=== PATIENT | male | born 1975 | race Caucasian/White ===

== ENCOUNTER 2016-08-04 18:31 | Emergency (ER) | payer MEDICARE ==
[~2016-08-04 18:31] MED LIST: Acetaminophen PO; BENZ1TAB7 PO; CRB200T PO; IBUP-1827 PO; OXYC5TAB72 PO; RISP1TAB3 PO
== END 2016-08-04 18:40 | disposition left against medical advice (07) ==
LOC: SED 18:31
DX: Z53.21 Procedure and treatment not carried out due to patient leaving prior to being seen by health care provider (principal)

== ENCOUNTER 2016-08-20 11:23 | Inpatient (IN) | payer MEDICAID, MEDICARE ==
[~2016-08-20] VITALS: Ht 182.9 cm; Wt 82.2 kg
[2016-08-20 11:27] VITALS: BP 110/76; PULSE 73; RESP 16; O2SAT 99
--- NOTE | 2016-08-20 13:12 | ED.REPORT ---
HPI-General Illness Date of Service Aug 20, 2016 ED Provider: Candice Ceron MD 41 year old male who is an everyday cigarette and marijuana smoker with a history of IV heroin and methamphetamine abuse presents to the ER accompanied by PACT team complaining of a week of rash and bruising to the left abdomen. Associated symptom of general malaise. PACT team brought the patient in due to evidence of liver failure and Hepatitis C on his recent blood tests. Medications include carbamazepine, and Risperdal. He was seen here in the ER for his rash and STD testing. Last IV drug use was about a month ago. Nursing Notes Stated Complaint: POSSIBLE LIVER FAILURE Chief Complaint: General Complaint Nursing Notes Reviewed: Yes Allergies: Coded Allergies: No Known Allergies (Verified Allergy, Unknown, 09/20/15) Scheduled Benztropine Mesylate (Benztropine Mesylate) 1 Mg Tablet 1 MG PO DAILY Carbamazepine (Carbamazepine) 200 Mg Tablet 400 MG PO DAILY Risperidone (Risperidone) 1 Mg Tablet 1 MG PO DAILY General Time Seen by MD: 13:12 Chief Complaint Not feeling well, Rash Hx Obtained From: Patient Arrived By: Walk-in Sudden in Onset?: No Onset Occurred: 1 week ago Symptom Duration: Since onset Pertinent Negative: Pt denies other symptoms Recent Healthcare: Recent doctor visit Similar Sx Previous: No Past Medical History Past Medical History Bipolar disorder, intermittent explosive disorder, cannabis dependence, cocaine, meth, heroine abuse antisocial personality traits Past Surgical History denies Smoking History Current Every Day Smoker Social History Alcohol Use: Denies alcohol use Drug Use: Meth, THC, Other Other Social History: Local resident, Homeless Ambulatory Status Independent Review of Systems Full Review of Systems Constitutional: Reports: Malaise Respiratory: Denies: Shortness of breath Cardiovascular: Denies: Chest pain GI: Denies: Abdominal pain, Diarrhea, Nausea, Vomiting Skin: Reports Rash Complete sys rev & neg: except as marked. Physical Exam Vital Signs Vital Signs Date Time Temp Pulse Resp B/P Pulse Ox O2 Delivery O2 Flow Rate FiO2 08/20/16 11:27 37.2 73 16 110/76 99 Room Air Initial VS: Reviewed Head / Eyes: Atraumatic, Normocephalic Neck: Supple, Non-tender, Full range of motion Extremities: Vascular intact, Neuro intact, No swelling, No tenderness Neurologic: Alert, Oriented, Nonfocal General/Constitutional: Awake, Alert, No acute distress, Well developed, Well nourished Respiratory / Chest: Breath sounds NL, No respiratory distress, No rales, No rhonchi, No wheezing Cardiovascular: Heart rate NL, Regular rhythm, Heart sounds NL, No murmurs, Cap refill not delayed, Peripheral circulation NL Skin: Warm, Dry, Intact Color / Condition: Positive: Rash present Rash / Lesion Notes: Herpes Zoster in Left side T10 distribution. About 1 week old, resolving. Interpretation & Diagnostics Lab Results Interpretation Result Diagram: 08/20/16 1312 08/20/16 1312 Test 08/20/16 13:12 White Blood Count 6.0th/mm3 (3.8-10.1) Red Blood Count 5.27mil/mm3 (4.40-5.80) Hemoglobin 15.1g/dL (13.8-17.2) Hematocrit 45.1% (41.0-50.0) Mean Corpuscular Volume 85.6fL (81-100) Mean Corpuscular Hemoglobin 28.7pg (27.0-35.0) Mean Corpuscular Hemoglobin Concent 33.5% (32.0-37.0) Red Cell Distribution Width 14.5% (12.3-15.4) Platelet Count 210bil/L (150-400) Neutrophils (%) (Auto) 58.1% (40-74) Lymphocytes (%) (Auto) 24.8% (14-46) Monocytes (%) (Auto) 15.0% (4-12) Eosinophils (%) (Auto) 1.3% (0-5) Basophils (%) (Auto) 0.5% (0-3) Sodium Level 137mEq/L (134-144) Potassium Level 4.4mEq/L (3.5-5.2) Chloride Level 101mEq/L (97-108) Carbon Dioxide Level 21mmol/L (18-29) Blood Urea Nitrogen 20mg/dL (6-20) Creatinine 0.82mg/dL (0.76-1.27) Estimat Glomerular Filtration Rate 111mL/min (>59) Glucose Level 97mg/dL (60-99) Calcium Level 9.4mg/dL (8.5-10.1) Total Bilirubin 2.2mg/dL (0.0-1.2) Aspartate Amino Transf (AST/SGOT) 2182U/L (0-50) Alanine Aminotransferase (ALT/SGPT) 3012U/L (0-44) Alkaline Phosphatase 337U/L (25-150) Total Protein 6.3g/dL (6.4-8.4) Albumin 3.9g/dL (3.4-5.0) Lipase 46U/L (13-60) Lab Results Interpretation: Hepatitis C positive, HIV negative 08/10/2016 Significantly elevated transaminases Re-Eval/Medical Decision Med Decision/Clinical Course Acute hepatitis of uncertain etiology. Abdomen has had work done it has been W through lab work and is not available in that general or in [facility]. We will need to contact his PAC T team to get access to those labs. Feeling mild malaise at this point more consistent with a 5 of his significant zoster outbreak then a fulminant hepatitis. Labs from August 10 due indicate hepatitis C which is a new diagnosis for him. HIV is negative in consultation with GI recommendation was for admission at least overnight to make sure transaminases are trending down. As he is eating and drinking will not admit IV at this point. He does have a history of IV drug use and I think having an IV site is a risk that is not worth taking at this point. He is quite stable at this time sober. And actively involved in his care. Willing to follow-up recommendations. We will expand her workup had ultrasound imaging of his liver obtain GI consult and plan on following blood/transaminase work trends over the next at least 24 hours. Source of Hx: Old records Time of Eval: 14:57 Re-Evaluation/Progress Note: Discussed lab results and completed physical examination. Re-Evaluation/Progress Note: Discussed need for admission. Patient is amenable to the plan. All other questions addressed. Consultation #1: Referral / Consult Name: Lawson Scott MD Consulted With: On-call physician (GI) Call Returned at: 15:05 Note: Due to acute changes, new Hep C dx and unclear ability to follow up, recommends ADMIT. Looking for auto immune hepatitis. Add full acute hep panel. Consultation #2: Consulted With: Hospitalist Call Returned at: 16:00 Ruling Machine Set Up Operator: Will see patient, Agrees with plan Note: Dr Mcwilliams. Will admit. GI consult. Discussed recommendations Counseled Regarding: Diagnosis, Lab results, Need for admission Discharge & Departure Primary Impression: Acute hepatitis C Additional Impression: Herpes zoster Disposition: ADMITTED TO HOSPITAL Discharge Condition All VS Reviewed: Yes Condition: Stable Referrals: Angella Ledesma DO (PCP) Miguel Attestation Portions of this note were transcribed by Kriss Ricketts. I, Dr. Ceron, personally performed the history, physical exam and medical decision-making; I reviewed and confirmed the accuracy of the information in the transcribed note. Signed by: Miguel Brady, 08/20/2016 at 15:13 copies to: Angella Ledesma Shawna L MD Aug 20, 2016 13:12 KRISS RICKETTS Aug 20, 2016 13:20
[2016-08-20 13:24] LABS: BASOPHILS % (AUTO) 0.5 % (0-3); EOSINOPHILS % (AUTO) 1.3 % (0-5); Mean Corpuscular Hemoglobin 28.7 pg (27.0-35.0); Mean Corpuscular Volume 85.6 fL (81-100); NEUTROPHILS % (AUTO) 58.1 % (40-74); Platelet Count 210 bil/L (150-400)
[2016-08-20 16:27] LABS: Unsaturated Iron Binding 222.1 ug/dL
[2016-08-20] MEDS ORDERED: LORazepam 0.5 mg Tablet PO PRN (16:35)
[2016-08-20] MEDS ORDERED: Ondansetron 2 mg/mL 2 mL Inj IVPUSH PRN (16:35)
[2016-08-20] MEDS ORDERED: Alum-Mag Hydrox-Simeth 30 mL Suspension PO PRN (16:35)
--- NOTE | 2016-08-20 16:44 | DRSVH ---
PROCEDURE: US ABDOMEN INDICATIONS: acute hepatitis TECHNIQUE: Real-time scanning was performed of the abdominal and retroperitoneal organs, with image documentatio n. COMPARISON: None. FINDINGS: Liver length: 16.66 cm Gallbladder Wall Thickness: 1.70 mm CBD: 2.30 mm Spleen length: 12.65 cm Right kidney length: 12.97 cm Left kidney length: 13.65 cm Aorta(Proximal): 2.07 cm Aorta(Mid): 1.68 cm Aorta(Distal): 1.56 cm Liver: Liver is normal in size and homogeneous in echotexture. Gallbladder: Collar subtracted and otherwise appears grossly normal. No obvious stones. Biliary ducts: Intrahepatic bile ducts are non-dilated. Extrahepatic bile duct caliber is normal. Normal is 6-7 mm or less in diameter, or 10 mm or less post-cholecystectomy. Pancreas: Visualized portions of the pancreas are sonographically normal. Spleen: Spleen is normal in size and homogeneous in echotexture. Kidneys: Kidneys are normal in size and echotexture. No hydronephrosis or nephrolithiasis. No jesse d masses. Aorta: Visualized aorta is normal in caliber at less than 3 cm. Iliacs: Proximal common iliac arteries are normal in caliber at less than 2.5 cm. IVC: Intrahepatic inferior vena cava is patent. Miscellaneous: No free abdominal fluid. IMPRESSION: Contracted gallbladder otherwise no acute abnormality seen. If indicated repeat limited exam of the gallbladder can be performed after the patient has been fasting. Dictated by: Pedro GONZALEZ Interpreted: Farzana Mcnamara MD on 08/20/2016 at 16:40 Transcribed by: JAIMIE on 08/20/2016 at 16:43 Approved by: Farzana Mcnamara M.D. on 08/20/2016 at 16:53
[2016-08-20 16:47] LABS: INR 1.09 ratio
[2016-08-20 17:09] LABS: Bilirubin, Direct 1.7 mg/dL (0.0-0.3)
[2016-08-20 17:24] VITALS: BP 118/70; PULSE 89; RESP 18; O2SAT 97
--- NOTE | 2016-08-20 17:40 | PCM.CHPMED ---
Subjective Date of Service: Aug 20, 2016 Primary Physician: Admitting Physician: Chandu Mcwilliams MD Primary Care Physician: Angella Ledesma DO Attending Physician: Chandu Mcwilliams MD Admit Status: From the Emergency Department, 23-Hour Observation Chief Complaint: Chief Complaint: Reason for consultation: Markedly elevated LFTs with concerns of acute liver failure. History of Present Illness: Scott Singh is a 41-year-old male with past medical history of bipolar disorder , antisocial personality, polysubtance abuse, and risky sexual behavior who was accompanied by the PACT team to the ED for concerns of liver failure. Patient states he had some blood work yesterday, and the PACT team called his mother today to notify that his liver enzymes are elevated and he needs to go to the ER. Patient reports some generalize fatigue and intermittent cough. He thought he was having a cold. Patient denies any abdominal pain, nausea, vomiting, fever , chills, headache, dizziness, or change in mental status. He feels well and it is a surprised for him to have such abnormal labs. He denies history of liver disease. Patient also reports a week history of shingle rash on his left upper abdomen. He denies significant pain at the lesions, but admits to some burning sensation in the suprapubic area. He has never had shingle in the past and this is the first time he developed this. He denies any dysuria, hematuria, or genital lesions. Patient admits unprotected sexual intercourse with 2 different women recently and was concerned about STDs. He was tested negative for HIV, Gonorrhea /Chlamydia on 08/10/16. His hepatitis panel at the same time was positive for Hep C, but negative for Hep A and B. Patient also admits to to active use of marijuana, methamphetamine, and heroin. The last time he uses IV drugs was 2-3 weeks ago, but his family reports frequent drug smoking/snorting. He reports to use cocaine intermittently as well. His home medications include carbamazepine and Risperdal that he has been on for a long time. He denies new medications, alcohol use, or excessive Tylenol use. In the ER, patient is asymptomatic with normal vital signs. However, his labs revealed markedly elevated AST (2182), ALT (3012), Alk Phos (337). Total Bilirubin 2.2. Lipase 46. GI service was consulted for the significant transaminitis. Review of Systems: Constitutional: Reports: Malaise, Denies: Chills, Fever, Weakness ENT: Denies: Dysphagia, Hoarseness Cardiovascular: Denies: Chest Pain, Edema, Irregular Heart Rate, Palpitations, Rapid Heart Rate, SOB on Exertion, SOB while laying flat Respiratory: Reports: Cough, Denies: Cough with bloody sputum, SOB with Exertion, Shortness of Breath, Sputum, Wheezing Gastrointestinal: Denies: Abdominal Pain, Black tarry stools, Blood in stool ( red), Change in Appetite, Constipation, Diarrhea, Heartburn, Nausea, Vomiting Genitourinary: Reports: No burning or pain with urination, Denies: Change in Frequency, Decrease Urinary Output, Decrease Urinary Stream , Dysuria, Hematuria, Nocturia Reproductive Male: Reports: Sexually Active, Denies: Venereal Disease Skin: Reports: Blisters, Lesions (abdominal wall), Other (burning pain), Redness Neurological: Denies: Change in LOC, Confusion, Dizziness, Localized Weakness, Numbness, Somnolence Psychologic: Denies: Agitation, Anxiety, Depression, Insomnia, Suicidal Thoughts PMH Past Medical History Bipolar disorder, intermittent explosive disorder, cannabis dependence, cocaine /meth/heroine abuse, antisocial personality traits. Surgical History Reports none Home Medications Admits to Carbamazepine and Risperridone. Unknown dosing. Allergies: Coded Allergies: No Known Allergies (Verified Allergy, Unknown, 09/20/15) Family History Family History Patient denies any family history of liver disease, cardiovascular, or cancer. Social History Hx Alcohol Use: No (denies)Hx Substance Use: Yes (IV drug use, THC, cocaine, meth)Hx Tobacco Use: Yes Smoking Status: Current Every Day Smoker (1/2 ppd) Living Arrangement: with Family (used to be homeless, but now lives with mother) Exam Vital Signs Vital Sign - Last Date Time Temp Pulse Resp B/P Pulse Ox O2 Delivery O2 Flow Rate FiO2 08/20/16 11:27 37.2 73 16 110/76 99 Room Air Additional Information: General: Awake, Alert, No acute distress, Well developed, Well nourished, Cooperative. HEENT: Atraumatic, Normocephalic. PERRLA, EOMI. Anicteric sclerae. Mucosa moist. Neck: Supple, Non-tender, Full range of motion Respiratory: No respiratory distress, clear to auscultation in all marsh. No rales, No rhonchi, No wheezing Cardiovascular: Regular rate and rhythm. No murmurs. Cap refill not delayed. Skin: Warm, Dry, Intact. Herpes Zoster in Left side T9 distribution anterior and posterior. Mild tender to palpation. Extremities: Vascular intact, Neuro intact, No swelling, No tenderness Neurologic: Alert, Oriented, Nonfocal. Psych: Mood and affect appropriate. Lab and Diagnostics Result Diagram: 08/20/16 1312 08/20/16 1312 X-Rays, CTs and MRIs PROCEDURE: US ABDOMEN IMPRESSION: Contracted gallbladder otherwise no acute abnormality seen. If indicated repeat limited exam of the gallbladder can be performed after the patient has been fasting. Dictated by: Pedro GONZALEZ Interpreted: Farzana Mcnamara MD on 08/20/2016 at 16: 40 Transcribed by: JAIMIE on 08/20/2016 at 16:43 Approved by: Farazna Mcnamara M.D. on 08/20/2016 at 16:53 Assessment & Plan Assessment 41-year-old male with past medical history of bipolar disorder, antisocial personality, polysubtance abuse, and risky sexual behavior who was accompanied by the PACT team to the ED for concerns of liver failure. He was found to have marked transaminitis with concerns for acute liver failure. GI service was consulted in the ED to help with the care of this patient. Impressions: 1. Marked transaminitis, likely acute. 2. Hepatitis C infection Plans: - Patient appears clinically stable and does not have any signs or symptoms of fulminant hepatitis. - Abdominal U/S showed contracted gallbladder otherwise no acute abnormality seen. - The etiology for the abnormal LFTs could be drug-induced, viral hepatitis/ infection, or autoimmune. - Full hepatic workups include: - TEENA/ASMA/AMA - Ceruloplasmin - alpha 1 antitrypsin - Protime/PTT - Hepatitis panel, hepatitis A IgM, Hepatitis B DNA - Iron panel, Transferrin, Ferritin, Transferrin Sat% - LDH - GGT - Look for other viral causes: [place] titer, CMV, HSV1/2 IgG - We recommend holding all home medications at this point unless absolutely needed. - Continue to monitor LFTs and clinical symptoms. If his LFTs continue to trend up or if patient develops worsening symptoms, we will consider a liver biopsy. - Please consider checking Acetaminophen level and tox screen in this poly- substance abuse patient. - Follow up with the Hepatitis C as outpatient. - We will defer to the primary care team to contact PACT to obtain previous records. - We should also treat his herpes zoster infection. It is uncommon for such a young person to develop Herpes Zoster, so we might need to look for any causes of possible immune suppression. I saw and examined the patient with the resident. Agree with above. Problems: Roya Roberts DO Aug 20, 2016 17:21 Lawson Scott MD Aug 22, 2016 09:19
[2016-08-20 17:46] VITALS: PULSE 64
[2016-08-20 17:56] VITALS: BP 120/72; PULSE 62; RESP 18; O2SAT 97
--- NOTE | 2016-08-20 18:55 | NUR ---
Admit To [facility] room 1009 from ER via wheelchair at 17:30. Alert and oriented. Denies nausea, complains of mild L abd/flank pain. Red, crusty rash across that area. Contact/droplet precautions for shingles. No IV access per MD. Report received from Sonia Muñoz.
[2016-08-20 20:26] VITALS: BP 121/68; PULSE 63; RESP 18; O2SAT 94
[2016-08-20 23:58] VITALS: BP 122/77; PULSE 68; RESP 16; O2SAT 97
--- NOTE | 2016-08-21 00:36 | PCM.HPMED ---
Subjective Date of Service Aug 20, 2016 Primary Provider: Admitting Physician: Primary Care Physician: Angella Ledesma DO Attending Physician: History of Present Illness: cc: malaise HISTORY was OBTAINED FROM PATIENT / [facility] NOTES History of present illness 41-year-old male with malaise associated rash, accompanied by PACT team to the ER. Recent diagnosis of hepatitis C, negative for other STDs. No abdominal pains. last recreational drug use couple of weeks ago. no EtOH use typically. no tyenol. In the ER vital signs stable, evaluated by gastroenterology team due to transaminitis, tolerating dinner Review of Systems - none of the following - F/C/sick contact / wt change/ MAGALLANES / lightheaded / dizziness / sob / cp / acid reflux / n/v/diarrhea / bleeding/ bruising / leg swelling / change in voiding / yeast infections / rash ambulates FAMILY HX no hepatic pathology SOCIAL HX Qday smoker, MJ methamphetamine/heroin MEDICATIONS Carbamazepine Risperdal Past Medical/Surgical HX Bipolar disorder, intermittent explosive disorder, cannabis dependence, cocaine, meth, heroine abuse antisocial personality traits Allergies Coded Allergies: No Known Allergies (Verified Allergy, Unknown, 09/20/15) PMH Social History Hx Alcohol Use: No (denies) Hx Substance Use: Yes (IV drug use, THC) Hx Tobacco Use: Yes Smoking Status: Current Every Day Smoker Exam Vital Signs Vital Sign - Last Date Time Temp Pulse Resp B/P Pulse Ox O2 Delivery O2 Flow Rate FiO2 08/20/16 11:27 37.2 73 16 110/76 99 Room Air Lab and Diagnostics Labs Exam on admission on room air NAD A and O x 3 mood affect WNL NC/AT no icterus no injected eyes EOMI PERRL /no pharyngeal lesions/ no oral lesions / hearing intact Supple neck CTAB equal chest rise / no accessory muscle use / speaks in full sentences / no rrw RRR S1 S2 / no mrg / 2+ radial pulses Soft nt nd + BS no hepatosplenomegaly No edema no cyanosis no ecchymosis of lower extremities No rash / no jaundice LUQUE LEFT T9 dermatome distribution zoster's rash, minimal pain LFT abnormal diffusely neg ASA/tylenol pending U tox Imaging PROCEDURE: US ABDOMEN INDICATIONS: acute hepatitis TECHNIQUE: Real-time scanning was performed of the abdominal and retroperitoneal organs, with image documentation. COMPARISON: None. FINDINGS: Liver length: 16.66 cm Gallbladder Wall Thickness: 1.70 mm CBD: 2.30 mm Spleen length: 12.65 cm Right kidney length: 12.97 cm Left kidney length: 13.65 cm Aorta(Proximal): 2.07 cm Aorta(Mid): 1.68 cm Aorta(Distal): 1.56 cm Liver: Liver is normal in size and homogeneous in echotexture. Gallbladder: Collar subtracted and otherwise appears grossly normal. No obvious stones. Biliary ducts: Intrahepatic bile ducts are non-dilated. Extrahepatic bile duct caliber is normal. Normal is 6-7 mm or less in diameter, or 10 mm or less post-cholecystectomy. Pancreas: Visualized portions of the pancreas are sonographically normal. Spleen: Spleen is normal in size and homogeneous in echotexture. Kidneys: Kidneys are normal in size and echotexture. No hydronephrosis or nephrolithiasis. No solid masses. Aorta: Visualized aorta is normal in caliber at less than 3 cm. Iliacs: Proximal common iliac arteries are normal in caliber at less than 2.5 cm. IVC: Intrahepatic inferior vena cava is patent. Miscellaneous: No free abdominal fluid. IMPRESSION: Contracted gallbladder otherwise no acute abnormality seen. If indicated repeat limited exam of the gallbladder can be performed after the patient has been fasting. Result Diagram: 08/20/16 1312 08/20/16 1312 Assessment & Plan Active issues and reason for admission Acute hepatitis w/ zoster's new onset, recently discovered + for hep c, well appearing, mildly fatigued. --Dr. Scott GI trending transaminitis, pending hepatitis labs Zoster's --valacyclovir Chronic issues known prior to admission, present on admission polysubstance abuse/ bipolar, no tardive dyskinesia on exam --holding tegretol until transaminitis improves, not toxic levels --continue risperidol/cogentin --ativan/clonidine PRN, no PIV --nicotine replacement Diet regular DVT prophylaxis lovneox ambulate Code full OBS status -anticipate transaminitis improves Assessment and plan were discussed with patient family. Chandu Mcwilliams MD Aug 20, 2016 16:46
[2016-08-21 05:09] VITALS: BP 116/72; PULSE 67; RESP 18; O2SAT 95
--- NOTE | 2016-08-21 05:47 | NUR ---
NOC PT has slept all night. Pt has been completely appropriate and cooperative with staff. HE voids in BR. ONly c./o pain is when the shingles to his L abdomen and L flank are touched. OTherwise, he denies pain. Rash is a little vesicular on the abdomen and only red in other areas. V/S WNL. Remains in precautions. WIll CTM.
[2016-08-21 05:55] VITALS: PULSE 69
[2016-08-21 06:15] LABS: Alpha-1-Antitrypsin, Serum 175 mg/dL (90-200); Transferrin 270 mg/dL (200-370)
[2016-08-21 06:15] LABS: Hepatitis A Antibody IgM Negative (Negative)
[2016-08-21 07:31] LABS: BASOPHILS % (AUTO) 0.5 % (0-3); EOSINOPHILS % (AUTO) 2.2 % (0-5); MONOCYTES % (AUTO) 16.7 % (4-12); Mean Corpuscular Hemoglobin 28.9 pg (27.0-35.0); Mean Corpuscular Volume 85.1 fL (81-100); NEUTROPHILS % (AUTO) 56.1 % (40-74); Platelet Count 192 bil/L (150-400)
[2016-08-21 08:10] LABS: Hepatitis A Antibody IgM Negative (Negative); Hepatitis B Core Antibody IgM Negative (Negative)
[2016-08-21] MEDS ORDERED: carBAMazepine 200 mg Tablet PO SCH ×2 (08:30)
--- NOTE | 2016-08-21 10:28 | PCM.PNMED ---
Subjective Date of Service Aug 21, 2016 Subjective Patient denies any pain. He said he is feeling well. Exam Vital Signs Vital Sign - Last Date Time Temp Pulse Resp B/P Pulse Ox O2 Delivery O2 Flow Rate FiO2 08/21/16 05:55 69 08/21/16 05:09 36.4 18 116/72 95 Room Air Intake and Output 08/20/16 08/20/16 08/21/16 Cumulative From/Thru 15:00 23:00 07:00 08/20/16 11:27 - 08/21/16 05:23 Intake Total 600 ml 600 ml Balance 600 ml 600 ml Intake Oral 600 ml 600 ml # Voids 2 2 # Bowel Movements 0 0 Exam Patient is alert and oriented 3. No asterixis Head and neck no clear icterus Lungs clear Cardiovascular regular rate and rhythm with no S1-S2 Abdomen soft nontender nondistended with normal active bowel sounds Extremities pitting edema ankles Skin no clear jaundice Lab and Diagnostics Result Diagram: 08/21/16 0653 08/21/16 0653 Assessment & Plan Active hepatitis. Etiology unclear. Differential viral hepatitis on top of chronic hepatitis C versus autoimmune hepatitis versus drugs. There is minimal evidence of hepatic decompensation such as worsening creatinine function mental status changes coagulopathy etc. LFTs mild improvement noted. AST 2180 2036 ALT 9983-5989 alkaline phosphatase [id number] total bili 2.2-3.1. Creatinine 0.66 INR 1.09 Tylenol level was undetectable alpha-1 antitrypsin level 175. Still waiting for serologies to come back. Continue following LFTs. Unlikely that his medication could have caused this is especially because his antipsychotic medications are on board for many years. I will defer zoster treatment to primary hospitalist. Lawson Scott MD Aug 21, 2016 10:28
[2016-08-21] MEDS: risperiDONE 1 mg Tablet PO SCH (10:36)
[2016-08-21 10:58] VITALS: PULSE 64
[2016-08-21 11:25] VITALS: BP 119/70; PULSE 82; RESP 18; O2SAT 96
--- NOTE | 2016-08-21 14:59 | PCM.PNMED ---
Subjective Date of Service Aug 21, 2016 Subjective Follow up for liver failure . Patient seen and examined at bedside . No new complaints. Live enzymes trending down. Exam Vital Signs Vital Sign - Last Date Time Temp Pulse Resp B/P Pulse Ox O2 Delivery O2 Flow Rate FiO2 08/21/16 11:25 36.6 82 18 119/70 96 Room Air Intake and Output 08/20/16 08/20/16 08/21/16 Cumulative From/Thru 15:00 23:00 07:00 08/20/16 11:27 - 08/21/16 05:23 Intake Total 600 ml 600 ml Balance 600 ml 600 ml Intake Oral 600 ml 600 ml # Voids 2 2 # Bowel Movements 0 0 Exam General: No acute distress. In bed comfortably HEENT: PERRL . Sclerae is anicteric Mouth : Moist oropharyngeal mucosa. Neck: supple, trachea is midline Chest:clear to auscultation and percussion. There are no rales, rhonchi, wheezes or rubs. Heart: S1, S2 regular Rate, rhythm is regular. There is no murmur, rub or gallop. Abdomen: Soft, non-tender, non-distended. Normal bowel sounds on quadrant Extremities: No edema, no cyanosis Neurologic: Grossly non focal IVs and Medications Medications Reviewed: Medications were reviewed in detail Lab and Diagnostics Result Diagram: 08/21/1653 08/21/16652 Assessment & Plan 1. Acute hepatitis : etiology unclear . Serolgy testing pending. Gi consult and recommendation noted . Ulikely to be due to medication Serology testing pending including alpha antitripsin . If negative a bipsy may be needed Monitor LFTs very closely. 2. Zoster's --valacyclovir Chronic issues known prior to admission, present on admission polysubstance abuse/ bipolar, no tardive dyskinesia on exam --holding tegretol until transaminitis improves, not toxic levels --continue risperidol/cogentin --ativan/clonidine PRN, no PIV --nicotine replacement Code full Clinically stable but need inpatient monitoring for acute liver failure Start gentle hydration with NS @ 60ml/ht Repeat LFTs in am Obtain HIV testing Resuscitation Status: CPR: Attempt Resuscitation Time spent 25 minutes Mariano León MD Aug 21, 2016 14:59
--- NOTE | 2016-08-21 15:35 | NUR ---
Social Work Note: Screen Note Data& Assessment: EMR reviewed. Patient is a 41 year old male admitted on 08/20/16 for Acute Hepatitis. Pt has [facility] for insurance coverage and sees Angella Ledesma MD for primary care. Pt lives in [place] with family and is independent at baseline. Pt is currently independent in her room. No discharge needs identified at this time. SW to continue to follow if any needs arise. Plan: Anticipated discharge home via POV when medically ready. No discharge needs identified at this time. SW to continue to follow if any needs arise. Melinda Wiley, KAILEE, ACM
[2016-08-21 17:36] VITALS: BP 120/70; PULSE 67; RESP 18; O2SAT 96
--- NOTE | 2016-08-21 18:36 | NUR ---
Activity Pt has no c/o pain during entire shift. Up independently and safely in room, able to shower. Tolerating all meals and behavior has been appropriate during entire shift. Sharps container removed from room. Pt's father states pt has left AMA before, so papers printed and put in chart if needed. Behavior contract is outside room as well, but was not signed yet.
--- NOTE | 2016-08-21 19:48 | NUR ---
[facility] signed
[2016-08-21 19:59] VITALS: BP 101/64; PULSE 53; RESP 16; O2SAT 94
[2016-08-22] VITALS: BP 119/80; PULSE 61; RESP 16; O2SAT 94
[2016-08-22 06:31] VITALS: BP 121/69; PULSE 65; RESP 18; O2SAT 92
--- NOTE | 2016-08-22 07:15 | NUR ---
Activity Pt remains in room throughout shift with no emotional episodes or inappropriate behavior. Once request for pain medication due to cracked tooth, obtained one time order from hospitalist for mita 5mg. Pt states no SOB, abdominal tenderness without n/v, and no chest pain. Care continues
[2016-08-22] MEDS: risperiDONE 1 mg Tablet PO SCH (08:24)
--- NOTE | 2016-08-22 09:06 | PCM.PNMED ---
Subjective Date of Service Aug 22, 2016 Subjective Patient has no pain discomfort. Informed me use of methamphetamines about 5 - 7 days ago. Exam Vital Signs Vital Sign - Last Date Time Temp Pulse Resp B/P Pulse Ox O2 Delivery O2 Flow Rate FiO2 08/22/16 06:31 36.6 65 18 121/69 92 Room Air Intake and Output 08/21/16 08/21/16 08/22/16 Cumulative From/Thru 15:00 23:00 07:00 08/20/16 11:27 - 08/22/16 06:31 Intake Total 792 ml 400 ml 1792 ml Output Total 500 ml 650 ml 1150 ml Balance 292 ml -250 ml 642 ml Intake Oral 792 ml 400 ml 1792 ml Output Urine Total 500 ml 650 ml 1150 ml # Voids 2 # Bowel Movements 0 0 0 Exam Patient is alert oriented comfortable Head and neck no clear icterus Lungs clear Cardiovascular regular rate and rhythm normal S1-S2 Abdomen soft nontender nondistended with normoactive bowel sounds Extremities no pedal edema. " No clear jaundice Lab and Diagnostics Result Diagram: 08/21/16 0653 08/22/16 0535 Assessment & Plan Active hepatitis. Etiology unclear. However with elevation of LDH and significant transaminase elevation with recent use of methamphetamines makes ischemic hepatitis high in the differential. Thus far mono is negative HIV is negative hepatitis a IgM is negative. AST went from 2030 06/10/1928 ALT 1 from 5971-2595 total bili 3.12 3.9 alkaline phosphatase [id number]. However other differential includes viral hepatitis on top of chronic hepatitis C versus autoimmune hepatitis versus drugs. Again patient is alert and oriented 3 no asterixis on exam. There is minimal evidence of hepatic decompensation such as worsening creatinine function mental status changes coagulopathy etc. this is a pattern that I suspect. I expect his bilirubin to increase like to transaminase stabilize and start going down. Again if any of these patterns changes will proceed with a liver biopsy. Recommendation I will defer zoster treatment to primary hospitalist. Please fractionate the bilirubin Obtain LDH again. If it is ischemic, I expect LDH to drop significantly as well. Please obtain INR. Resuscitation Status: CPR: Attempt Resuscitation Lawson Scott MD Aug 22, 2016 09:06 Start gentle hydration with NS @ 60ml/ht Repeat LFTs in am Obtain HIV testing Resuscitation Status: CPR: Attempt Resuscitation Lawson Scott MD Aug 22, 2016 09:06
--- NOTE | 2016-08-22 11:41 | PCM.PNMED ---
Subjective Date of Service Aug 22, 2016 Subjective Follow-up for elevated LFTs. Patient seen and examined at bedside. He has no new complaints. No nausea, no vomiting, no fever, no chills Exam Vital Signs Vital Sign - Last Date Time Temp Pulse Resp B/P Pulse Ox O2 Delivery O2 Flow Rate FiO2 08/22/16 06:31 36.6 65 18 121/69 92 Room Air Intake and Output 08/21/16 08/21/16 08/22/16 Cumulative From/Thru 15:00 23:00 07:00 08/20/16 11:27 - 08/22/16 06:31 Intake Total 792 ml 400 ml 1792 ml Output Total 500 ml 650 ml 1150 ml Balance 292 ml -250 ml 642 ml Intake Oral 792 ml 400 ml 1792 ml Output Urine Total 500 ml 650 ml 1150 ml # Voids 2 # Bowel Movements 0 0 0 Exam General: No acute distress. In bed comfortably Mouth : Moist oropharyngeal mucosa. Neck: supple, trachea is midline . NO JVD Chest:clear to auscultation and percussion. There are no rales, rhonchi, wheezes or rubs. Heart: S1, S2 regular Rate, rhythm is regular. There is no murmur, rub or gallop. Abdomen:Benign. No hepatomegaly Extremities: No edema, no cyanosis Neurologic: Grossly non focal. AAO x 3 IVs and Medications Medications Reviewed: Medications were reviewed in detail Lab and Diagnostics Result Diagram: 08/21/16 0653 08/22/16 0535 Assessment & Plan 1. Acute hepatitis : etiology unclear . Serolgy testing pending. Possible drug use. Patient admit to recent use of amphetamine Gi consult and recommendation noted LFTs slightly down today. LDH pending. 2. Zoster's : Improving --valacyclovir for 7 days Chronic issues known prior to admission, present on admission polysubstance abuse/ bipolar, no tardive dyskinesia on exam --holding tegretol until transaminitis improves, not toxic levels --continue risperidol/cogentin --ativan/clonidine PRN, no PIV --nicotine replacement Code full Patient is somewhat better today. His LFT are trending down. Condition discussed with his prior bedside. Patient needs to have recently use amphetamines. Discharge planning Resuscitation Status: CPR: Attempt Resuscitation Time spent 25 minutes Mariano León MD Aug 22, 2016 11:40
[2016-08-22 11:54] LABS: INR 1.1 ratio
--- NOTE | 2016-08-22 14:05 | NUR ---
Social Work Note: CD Assessment Attempt Data& Assessment: EMR reviewed. Patient is a 41 year old male admitted on 08/20/16 for Acute Hepatitis. SW met with patient at bedside to complete CD assessment because patient has a history of Marijuana and methamphetamine/heroin use per H&P. SW explained role, offered CD resources and attempted to complete CD assessment, but patient declined. Patient stated that he has the resources needed and did not want to answer any questions at this time. No discharge needs identified at this time. SW to continue to follow if any needs arise. Plan: Anticipated discharge home via POV when medically ready. No discharge needs identified at this time. SW to continue to follow if any needs arise. Melinda Wiley, KAILEE, ACM
[2016-08-22 16:56] VITALS: BP 108/63; PULSE 69; RESP 16; O2SAT 93
[2016-08-22 19:45] VITALS: BP 101/58; PULSE 73; RESP 20; O2SAT 100
--- NOTE | 2016-08-23 06:30 | NUR ---
Tooth ache patient states 9/10 pain in tooth/jaw this shift. Given one dose of roxicodone per hospitalist this was the only dose he should recieve this shift. He complains of pain several hours later as he was restless and walking around his room. He accepted ativan and decided to take a shower. No further complaints, pt has remained in his room and appropriate this shift. Care continues
[2016-08-23 06:31] LABS: INR 1.07 ratio
[2016-08-23 06:56] VITALS: BP 107/67; PULSE 74; RESP 18; O2SAT 100
[2016-08-23] MEDS: risperiDONE 1 mg Tablet PO SCH (08:23)
--- NOTE | 2016-08-23 08:37 | PCM.DIMED ---
Discharge Instructions Date of Service Aug 23, 2016 Dates of Hospitalization Aug 20, 2016 at 16:51 Discharge Diagnosis Discharge Diagnosis 1. Acute hepatitis : etiology unclear , 2. Zoster's, 3. Hepatitis C , 4 polysubstance abuse , 5. bipolar, 6. Tobacco abuse disorder Diet No restrictions Activity No restrictions Call your provider Fever or Chills, Vomitting Patient Instructions Follow up with gastroenterology and primary care doctor in one week . Liver function test as outpatient with primary care doctor . Follow up final report of serology test with primary care doctor Follow-up plan Follow up with gastroenterology and primary care doctor in one week . Liver function test as outpatient with primary care doctor . Follow up final report of serology test with primary care doctor Follow-up in: 1 week (Primary care doctor and gastroenterology ) Mariano León MD Aug 23, 2016 08:37
--- NOTE | 2016-08-23 08:37 | NUR ---
Social Work-readiness for discharge: Data:EMR Reviewed. Pt is on day 3 of hospitalization for acute hepatis per H&P. Pt is not medically stable anticipate later today or tomorrow. CD assessment attempted, pt declined any resources. Pt to return home with family, no needs. Pt has been up independent in his room. No discharge needs identified. SW will continue to follow if needs arise. Assessment:Pt who is independent at baseline. Plan:Pt to discharge home when medically stable. Pt is declining CD resources. No discharge needs identified. SW will continue to follow if needs arise. PEG Ferrraa
[2016-08-23] MEDS ORDERED: VALA500T2 PO (08:38)
[2016-08-23] MEDS ORDERED: NICO1PAT6 TOPICAL (08:38)
--- NOTE | 2016-08-23 11:02 | NUR ---
Discharge Pt DC home with his mother at 1045. Pt given [facility] information to have LFT drawn on Tuesday and will follow up with Dr. Scott from Gastroenterology for his results and potential hepatitis treatment. He knows to also call and schedule an appointment with his PCP. Pt refused social work assistance and mother is actively involved in his care and is aware of his substance abuse history. All belongings home with pt.
--- NOTE | 2016-08-23 11:19 | NUR ---
Social Work- discharge: Data:EMR Reviewed. Pt is on day 3 of hospitalization for acute hepatis per H&P. Pt is medically stable today for discharge. Pt declining all resources from SW. Pt to return home with family, no needs. Pt has been up independent in his room. No discharge needs identified. All updated and agreeable to plan. Assessment:Pt who is independent at baseline. Plan:Pt to discharge home today via POV. Pt is declining all resources from SW. No discharge needs identified. All updated and agreeable to plan. PEG Ferrara
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
[2016-08-23 19:09] LABS: Transferrin 250 mg/dL (.)
== END 2016-08-23 10:45 | disposition home or self-care (01) | DRG 442 ==
LOC: SED 11:23 → OBSVTOIN 16:51 → OSC 16:51
PROVIDERS: ADMIT Urology; ATTEND Urology
DX: B17.10 Acute hepatitis C without hepatic coma (principal); B00.81 Herpesviral hepatitis; F17.200 Nicotine dependence, unspecified, uncomplicated